=== PATIENT | female | born 1985 | race African-American/Black ===

== ENCOUNTER 2016-10-11 13:59 | Observation (INO) | payer MEDICAID ==
[~2016-10-11] VITALS: Ht 167.6 cm; Wt 67.1 kg
[2016-10-11] MEDS ORDERED: PREN-88 PO (14:59)
[2016-10-11] MEDS ORDERED: DEXT 5%/LACTATED RINGERS 1,000 ML IV ONE (15:00)
== END 2016-10-11 17:00 | disposition home or self-care (01) ==
LOC: L&D 13:59
PROVIDERS: ADMIT Specialist; ATTEND Specialist
DX: O26.893 Other specified pregnancy related conditions, third trimester (principal); R10.9 Unspecified abdominal pain; Z3A.36 36 weeks gestation of pregnancy
CPT/HCPCS: 76805; 76818; 96360; 99281; G0378

== ENCOUNTER 2016-10-14 08:19 | Inpatient (IN) | payer MEDICAID ==
[~2016-10-14] VITALS: Ht 167.6 cm; Wt 67.6 kg
[~2016-10-14 08:19] MED LIST: PREN-88 PO
[2016-10-14] MEDS ORDERED: LACTATED RINGERS 1,000 ML IV SCH (09:40)
[2016-10-14] MEDS ORDERED: METHYLERGONOVINE MALEATE 0.2 MG/ML IM PRN ×2 (09:45→21:15)
[2016-10-14] MEDS ORDERED: MISOPROSTOL 200MCG TABLET VG SCH (09:45)
[2016-10-14] MEDS ORDERED: LIDOCAINE HCL 1% 20ML VIAL (Pyxis) INJ INFIL SCH (09:45)
[2016-10-14] MEDS ORDERED: NALOXONE HCL 0.4 MG/ML 1ML VIAL IM PRN (09:45)
[2016-10-14] MEDS ORDERED: CARBOPROST TROMETHAMINE 250 MCG/ML AMPUL IM PRN (09:45)
[2016-10-14] MEDS ORDERED: BUTORPHANOL TARTRATE 2 MG/ML VIAL IV PRN (09:45)
[2016-10-14 09:58] LABS: BASOPHILS % 0.4 % (0.0-2.0); EOSINOPHILS % 0.8 % (0.0-5.0); HEMATOCRIT. 32.7 % (36.0-48.0); HEMOGLOBIN. 11.3 g/dL (12.0-16.0); LYMPHOCYTES % 30.3 % (20.0-50.0); MEAN CORPUSCULAR HEMOGLOBIN 32.5 pg (28.0-32.0); MEAN CORPUSCULAR VOLUME 93.7 fL (81.0-99.0); MEAN PLATELET VOLUME 8.5 fl (7.4-10.4); MONOCYTES % 9.4 % (2.0-8.0); NEUTROPHILS % 59.1 % (40.0-76.0); PLATELET 243 x1000/uL (130-400); RED BLOOD CELL COUNT 3.49 mill/uL (4.2-5.4); RED CELL DISTRIBUTION WIDTH 13.9 % (11.6-14.6)
[2016-10-14 10:01] LABS: CLARITY URINE CLEAR (CLEAR); COLOR URINE YELLOW (YELLOW); GLUCOSE URINE NEGATIVE (NEGATIVE); KETONES URINE NEGATIVE (NEGATIVE); LEUKOCYTE ESTERASE URINE TRACE (NEGATIVE); NITRITE URINE NEGATIVE (NEGATIVE); OCCULT BLOOD URINE NEGATIVE (NEGATIVE); PH URINE 7.5 (4.5-8.0); PROTEIN URINE NEGATIVE (NEGATIVE); SPECIFIC GRAVITY URINE 1.013 (1.005-1.030)
[2016-10-14 10:08] LABS: INR 0.9; PARTIAL THROMBOPLASTIN TIME 29.1 sec (23.4-31.0); PROTHROMBIN TIME 9.9 sec (9.4-11.6)
[2016-10-14 10:12] LABS: *AMPHETAMINES SCREEN URINE NEGATIVE (NEGATIVE); *BARBITURATES SCREEN URINE NEGATIVE (NEGATIVE); *BENZODIAZEPINES SCREEN URINE NEGATIVE (NEGATIVE); *COCAINE SCREEN URINE NEGATIVE (NEGATIVE); CANNABINOID URINE SCREEN NEGATIVE (NEGATIVE); METHADONE URINE SCREEN NEGATIVE (NEGATIVE); OPIATES URINE SCREEN NEGATIVE (NEGATIVE); PHENCYCLIDINE URINE SCREEN NEGATIVE (NEGATIVE)
[2016-10-14] MEDS: LACTATED RINGERS 1,000 ML IV SCH ×2 (11:01→17:30)
[2016-10-14 11:54] LABS: RUBELLA IGG 142.7 IU/mL (4.99-10)
[2016-10-14 11:55] LABS: HEPATITIS B SURFACE ANTIGEN NEGATIVE
[2016-10-14] MEDS ORDERED: MISOPROSTOL 200MCG TABLET ONE (14:19)
[2016-10-14] MEDS: DEXT 5%/LR + PITOCIN 20UNITS/L 1,000 ML IV SCH ×2 (17:29→20:04)
[2016-10-14] MEDS ORDERED: IBUPROFEN 800MG TABLET PO NR (19:14)
[2016-10-14] MEDS ORDERED: IBUPROFEN 400MG TABLET PO PRN (21:15)
[2016-10-14] MEDS ORDERED: RHO(D) IMMUNE GLOBULIN 300 MCG/SYR IM PRN (21:15)
[2016-10-14] MEDS ORDERED: DEXT 5%/LR + PITOCIN 20UNITS/L 1,000 ML IV SCH (21:30)
[2016-10-15 07:16] LABS: BASOPHILS % 0.4 % (0.0-2.0); EOSINOPHILS % 0.4 % (0.0-5.0); HEMATOCRIT. 28.2 % (36.0-48.0); HEMOGLOBIN. 9.8 g/dL (12.0-16.0); LYMPHOCYTES % 19.9 % (20.0-50.0); MEAN CORPUSCULAR HEMOGLOBIN 32.4 pg (28.0-32.0); MEAN CORPUSCULAR VOLUME 93.5 fL (81.0-99.0); MEAN PLATELET VOLUME 8.2 fl (7.4-10.4); MONOCYTES % 9.6 % (2.0-8.0); NEUTROPHILS % 69.7 % (40.0-76.0); PLATELET 227 x1000/uL (130-400); RED BLOOD CELL COUNT 3.01 mill/uL (4.2-5.4); RED CELL DISTRIBUTION WIDTH 13.6 % (11.6-14.6)
[2016-10-15 08:00] VITALS: BP 105/64
[2016-10-15] MEDS: FERROUS SULFATE 325MG TABLET PO SCH ×3 (08:35→17:39)
[2016-10-15] MEDS: IBUPROFEN 800MG TABLET PO PRN ×2 (08:35→17:40)
[2016-10-15 15:08] VITALS: BP 101/51
[2016-10-15 20:00] VITALS: BP 107/66
[2016-10-15] MEDS ORDERED: TETANUS, DIPHTHERIA, PERTUSSIS VAC/PF 0.5ML (>7YR OLD) IM ONE (22:30)
[2016-10-16 00:12] VITALS: BP 106/67
[2016-10-16 08:07] VITALS: BP 101/55
[2016-10-16] MEDS: FERROUS SULFATE 325MG TABLET PO SCH (08:48)
[2016-10-16] MEDS: IBUPROFEN 800MG TABLET PO PRN (08:49)
== END 2016-10-16 11:10 | disposition home or self-care (01) | DRG 560 ==
LOC: L&D 08:19 → OBSVTOIN 18:15 → 7EST PP/OB 20:45
PROVIDERS: ADMIT Obstetrics & Gynecology; ATTEND Obstetrics & Gynecology
PROC: 10E0XZZ Delivery of Products of Conception, External Approach (ICD-10-PCS; principal; 2016-10-14 18:15)
DX: O99.02 Anemia complicating childbirth (principal); D62 Acute posthemorrhagic anemia; Z3A.37 37 weeks gestation of pregnancy; Z37.0 Single live birth
CPT/HCPCS: 36415; 80305; 81001; 85025; 85610; 85730; 86592; 86703; 86762; 86850; 86900; 87340; 90715; 99281; G0378; J2210; J2590; J7120

== ENCOUNTER 2017-10-24 10:54 | Observation (INO) | payer MEDICAID ==
[~2017-10-24] VITALS: Ht 167.6 cm; Wt 63.5 kg
== END 2017-10-24 13:00 | disposition home or self-care (01) ==
LOC: NUR 10:54 → L&D 11:00
PROVIDERS: ADMIT Obstetrics & Gynecology; ATTEND Obstetrics & Gynecology
DX: O42.913 Preterm premature rupture of membranes, unspecified as to length of time between rupture and onset of labor, third trimester (principal); Z3A.35 35 weeks gestation of pregnancy
CPT/HCPCS: G0378 ×2

== ENCOUNTER 2018-10-21 00:28 | Emergency (ER) | payer MEDICAID ==
[~2018-10-21] VITALS: Ht 167.6 cm; Wt 50.0 kg
[2018-10-21 04:49] VITALS: BP 111/77
== END 2018-10-21 04:51 | disposition left against medical advice (07) ==
LOC: ER 00:28
DX: Z53.21 Procedure and treatment not carried out due to patient leaving prior to being seen by health care provider (principal); F41.9 Anxiety disorder, unspecified